=== PATIENT | female | born 1995 | race Caucasian/White ===

== ENCOUNTER 2021-08-05 15:16 | Emergency (ER) | payer OTHER ==
[~2021-08-05] VITALS: Ht 152.4 cm; Wt 73.9 kg
[2021-08-05 15:16] VITALS: BP_SYST 152
--- NOTE | 2021-08-05 15:16 | NUR ---
BROUGHT BACK TO BED #4 AND TRIAGED. REPORT GIVEN TO JASMIN
--- NOTE | 2021-08-05 15:30 | NUR ---
ER at bedside examining patient.
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
[2021-08-05] MEDS ORDERED: LIDOCAINE/EPI 1% 1:100000 20 ML VIAL INJ ONE (15:45)
--- NOTE | 2021-08-05 15:49 | NUR ---
Dr. Hsieh at bedside for suturing
--- NOTE | 2021-08-05 15:59 | NUR ---
Nilson bowen in [facility] - 08/05/21 at 1600 by OZIEL at bedside
[2021-08-05] MEDS ORDERED: DIPH-TET-PERTUS Vaccine 0.5 ML VIAL (ADACEL) I.M. ONE (16:15)
[2021-08-05 16:26] VITALS: BP_SYST 141
--- NOTE | 2021-08-05 16:27 | NUR ---
Patient given written and verbal discharge instructions and verbalizes understanding. ER MD discussed with patient the results and treatment provided. Patient in stable condition. ID arm band removed. Patient educated on pain management and to follow up with PMD. Pain Scale 0. Opportunity for questions provided and answered. Medication side effect fact sheet provided.
== END 2021-08-05 16:26 | disposition home or self-care (01) ==
LOC: SED 15:16
DX: S01.411A Laceration without foreign body of right cheek and temporomandibular area, initial encounter (principal); Y04.0XXA Assault by unarmed brawl or fight, initial encounter; Y93.89 Activity, other specified; Y92.89 Other specified places as the place of occurrence of the external cause; Y99.8 Other external cause status
CPT/HCPCS: 90715; 99283

== ENCOUNTER 2021-08-14 15:21 | Emergency (ER) | payer OTHER ==
[~2021-08-14] VITALS: Ht 152.4 cm; Wt 73.9 kg
[2021-08-14 15:21] VITALS: BP_SYST 132
--- NOTE | 2021-08-14 15:21 | NUR ---
BROUGHT BACK TO BED #1 AND TRIAGED. REPORT GIVEN TO MARIOLA
--- NOTE | 2021-08-14 15:41 | NUR ---
DR AYOUB IN ROOM FOR EXAM
--- NOTE | 2021-08-14 16:02 | NUR ---
SUTURES REMOVED, NO BLEEDING NOTED
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
== END 2021-08-14 16:08 | disposition home or self-care (01) ==
LOC: SED 15:21
DX: S01.81XD Laceration without foreign body of other part of head, subsequent encounter (principal); Z48.02 Encounter for removal of sutures; Y04.0XXD Assault by unarmed brawl or fight, subsequent encounter
CPT/HCPCS: 99281